=== PATIENT | female | born 1965 | race Caucasian/White ===

== ENCOUNTER 2023-06-23 12:43 | Outpatient (CLI) | payer OTHER, SELFPAY ==
--- NOTE | 2023-06-23 13:06 | ECG_ITS ---
Measurements Intervals [place] Rate: 71 P: -37 MN: 137 QRS: 15 QRSD: 80 T: 52 QT: 327 QTc: 355 Interpretive Statements SINUS RHYTHM BORDERLINE ST-T WAVE ABNORMALITY- HIGH LATERAL LEADS BASELINE ARTIFACT- I, II, III, AVR, AVL, AVF BORDERLINE ECG NO PREVIOUS ECG AVAILABLE FOR COMPARISON Electronically Signed On 06-23-2023 13:48:56 CDT by Rian Benito D.O.
== END 2023-06-23 12:44 | disposition home or self-care (01) ==
LOC: ANHSURGERY 13:04
PROVIDERS: PCP Internal Medicine; Visit Provider Podiatrist Foot & Ankle Surgery
DX: Z01.818 Encounter for other preprocedural examination (principal); E78.00 Pure hypercholesterolemia, unspecified
CPT/HCPCS: 93005

== ENCOUNTER 2023-06-27 00:25 | Day surgery (SDC) | payer OTHER, SELFPAY ==
--- NOTE | 2023-06-23 10:22 | SUR.PREOP ---
Report to the Outpatient Waiting Room, entrance under the green pavilion located off [facility], at time 1130 on date 06/27/23. Planned Procedure Time: 1330. Time changes happen often and if your time is changed the preop area will call you the afternoon before. - You and your visitor will be asked to self-screen and do not enter if you have any COVID symptoms. - A mask is optional within the hospital at this time. Patients may have clear liquids (water, carbonated beverages, clear teas, apple juice) until 3 hours prior to surgery with a maximum of 20 ounces. - NO CLEAR LIQUIDS AFTER 1030 - No food from midnight until time of surgery - Infants may have breast milk until 4 hours before surgery, formula 6 hours prior to surgery. - Children will be allowed to drink immediately following surgery. If applicable, please bring a bottle or sippy cup to assist with drinking. Juice, water, soda, and popsicles are readily available. For infants on formula, please bring formula the day of surgery. Pacifiers are allowed. Take the following medications with a SIP of water the morning of surgery: VENLAFAXINE DO NOT STOP ANY OF YOUR OTHER PRESCRIPTION MEDICATIONS PRIOR TO SURGERY ?EXCEPT THE FOLLOWING Medications to discontinue per physician Date to take last dose Please no make-up, nail georgian, hairspray, perfume, deodorant, or body powder the day of surgery. No jewelry (including any body piercings) or valuables the day of surgery, leave them at home. Please take a shower or bath the night before, or the morning of, surgery with an antibacterial soap. Wear comfortable, loose fitting clothing. Children are encouraged to wear pajamas. - Jewelry must be removed prior to entering the operating room. Rings and piercings that are not removed may be cut off. - The hospital will not accept responsibility for valuables. - Please leave all valuables, including medications, at home the day of surgery. If you are going home after surgery, a licensed [employer] company driver must drive you home. - NO public transportation without another adult if you receive anesthesia. - We recommend that an adult stay with you for 24 hours following discharge. - We also recommend that you do not drive, make important decision, drink alcoholic beverages, or take any drugs that were not prescribed by your health care provider for at least 24 hours after your discharge time. For Pediatric surgeries, we recommend two adults accompany the child home. Follow any additional instructions given to you from your surgeon. If you or anyone in your household have experienced Covid symptoms in the past week, please notify your surgeon or the nurse liaison at the phone number below for possible testing. Telephone instructions given to [place] and asked if any additional questions and then verbalized understanding. Patient advised to call surgeon office or pre surgery nurse liaison [phone] if any additional questions.
[2023-06-23 10:55] VITALS: BMI 28.3
[2023-06-27] VITALS (8 sets, daily range): BP systolic 139–168; BP diastolic 64–89; PULSE 70–89; RESP 12–20; TEMP 36.3–36.6; O2SAT 96–100
--- NOTE | ~2023-06-27 | XR_ITS ---
EXAMINATION: XR surgery orthopedic INDICATION: Left foot arthrodesis TECHNIQUE: Two fluoroscopic images of the distal left foot are submitted for review. Total fluoroscop ic time was six seconds. COMPARISON: None available FINDINGS: Fluoroscopic images demonstrate plate and screw fusion of the first metatarsophalangeal yury nt. Orthopedic hardware traverses the phalanges of the second toe and into the second metatarsal. Ple ase refer to procedure note for full details. IMPRESSION: 1. Please refer to procedure note for full details. Reviewed, dictated and finalized at location F.
--- NOTE | 2023-06-27 07:14 | WPDHPUPDATE1 ---
History and Physical Update Update Date/Time: 06/27/23 07:14 History and Physical has been reviewed, including an updated exam of the patient. There are NO changes in the patient's condition. Risks, benefits, and alternatives have been discussed and questions answered. Patient agrees to proceed with procedure.
--- NOTE | 2023-06-27 09:45 | P.PNAN_ITS ---
Anes - Initial Pre Proc Eval Procedure: Operation Date: 06/27/23 13:30 Proposed Procedures p Arthrodesis First Metatarsal Phalangeal Joint Left Foot, Марина Shortening Second Metatarsal Osteotomy Left Foot - Qamar Salcido JR, MD s Second Digit Hammertoe Repair Left Foot - Qamar Salcido JR, MD s Possible Second Metatarsal Head Resection - Qamar Salcido JR, MD Date/Time: 06/27/23 09:45 Surgeon: Qamar Salcido JR, MD Pre Op Diagnosis: Bunion Lt, Metatarsalgia Lt,Hammertoe Lt 2nd Digit Patient Data Age: 57 Gender: F Height: 1.63 m Weight: 75 kg Allergies Allergy/AdvReac Type Severity Reaction Status Date / Time Sulfa (Sulfonamide Allergy Intermediate rash Verified 06/27/23 11:28 Antibiotics) Home Medications Medication Instructions Recorded Confirmed Type trazodone 100 mg tablet 100 mg PO QHS 12/10/21 06/27/23 History venlafaxine 100 mg tablet 100 mg PO BID 12/10/21 06/27/23 History atorvastatin 10 mg tablet 10 mg PO DAILY 02/10/23 06/27/23 History Patient hx anesthesia problems: post op nausea/vomiting Family hx anesthesia problems: none Results Review: All pre-operative results and documents have been reviewed as part of the pre-operative evaluation. [facility], LAT[facility] Past Medical History Medical History (Updated 02/10/23 @ 15:06 by REINALDO Geiger) Anxiety and depression CTS (carpal tunnel syndrome) (06/15/20) right hand High cholesterol rx meds Screening mammogram, encounter for Surgical History Surgical History H/O LEEP (10/13/99) leep- cx dysplasia History of hernia surgery (~1988) History of hysteroscopy (~1988) Family History Family History Father Heart disease Sibling Heart disease brother Lung cancer brother Alcohol abuse brother Mother Hypertension Thyroid cancer Social History Social History Smoking status: Never smoker Alcohol intake: current Drinks per week: 8 Substance use: never Substance use type: does not use Living arrangements: with family Additional living arrangements comments: spouse Occupation/Education: occupation 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 Gender identity (if verbalized by the patient): Female Sexual Orientation (if Verbalized by the Patient): Straight or Heterosexual Spiritual care concerns: No Anes - Eval Final PreProcedure Day of Procedure 06/27/23 09:45 Patient weight: overweight Heart: regular rate and rhythm Lungs: clear to auscultation Airway: Mallampati scale class II Neurological: alert and oriented Last oral intake: >/= 8 hours ASA classification: II Emergent: no Anesthetic plan: proceed Anesthesia type and monitoring: general GIVS and standard monitoring Results Review: All pre-operative results and documents have been reviewed as part of the pre- operative evaluation. Informed Consent: The patient's anesthetic plan and its attendant risks and benefits were discuss ed with the patient/family/POA. Questions were solicited and answers provided to the satisfaction of the patient/family/POA.
--- NOTE | 2023-06-27 11:04 | WPDANESPNB ---
Anes - Peripheral Nerve Block Date/Time: 06/27/23 11:04 I have discussed with the patient/family/POA the placement of a peripheral nerve block for post-operative pain management, including associated risks, benefits, complications, and side effects. Alternative methods of post-operative analgesia were detailed. Questions were solicited and answers provided to the satisfaction of the patient/family/POA. Time-Out: A pre-procedural Time-Out was completed immediately before starting the procedure and confirmed: Patient Identification, Site, Procedure, Patient Position and the Availability of Requisite Equipment. Clinical Indications: Acute post-operative pain management requested by the operative surgeon. Nerve Block Insertion Note Anes-nerve block: posterior fossa sciatic left and adductor canal left Patient position: supine (for adductor canal) and other (right lateral for popliteal) Skin prep: chlorhexidine Needle: 22 gauge, stimulating, insulated echogenic needle. Needle length: 80 mm Technique: nerve stimulation lost at (mA) (for popliteal lost at 0.2) and ultrasound Injectate: bupivacaine 0.5% with epi 5 mcg/ml (20 mL for popliteal, 10 mL for adductor canal (no epi)) Observations: tolerated well Complications: none Procedure start time:: 1240 Procedure end time:: 124
[2023-06-27] MEDS: LACTATED RINGERS 1,000 ML 30 ML IV CONT ×2 (11:40→14:22)
[2023-06-27] MEDS: SCOPOLAMINE 1.5 MG PATCH TRANSDERM (12:14)
[2023-06-27] MEDS: ceFAZolin 2 GM/D5W 50 ML 2 GM/50 ML BAG IVPB (12:59)
--- NOTE | 2023-06-27 14:27 | WPDHPUPDATE1 ---
History and Physical Update Update Date/Time: 06/27/23 14:27 History and Physical has been reviewed, including an updated exam of the patient. There are NO changes in the patient's condition. Risks, benefits, and alternatives have been discussed and questions answered. Patient agrees to proceed with procedure.
--- NOTE | 2023-06-27 14:27 | W.PM.PROC2 ---
Procedure Note - Detailed Date of Procedure 06/27/23 Pre-op Diagnosis 1. Severe arthritic bunion left foot 2. Dislocated 2nd digit left foot at the metatarsal phalangeal joint 3. 3rd digit hammertoe deformity left foot Post-op Diagnosis Same Procedure Performed 1. Arthrodesis of the first metatarsal phalangeal joint left foot 2. 2nd metatarsal head resection left foot 3. Hammertoe repair second digit left foot with proximal interphalangeal joint arthrodesis Surgeon Qamar Salcido JR, KANDI Anesthesia General and Regional Indications Painful left forefoot Findings Significant joint deneration to the first and second metatarsal phalangeal joint the second digit was on top of the second metatarsal head Description of Procedure PROCEDURE IN DETAIL:? Under mild sedation, the patient was brought into the operating room, placed on the operating table in supine position.? A pneumatic ankle tourniquet was placed about the patient's ipsilateral ankle.? Following general anesthesia and a popliteal fossa block, the foot was? scrubbed, prepped, and draped in the usual aseptic manner.? An Esmarch bandage was then used to exsanguinate the patient's? foot and the pneumatic ankle tourniquet was then inflated. ? Surgery began in the following manner:? Attention was directed to the dorsal medial aspect of the 1st metatarsophalangeal joint where there was a ?hallux valgus deformity noted with a prominent first metatarsal phalangeal joint dorsal medially.? The incision was made starting along the central shaft of the 1st metatarsal and extending just proximal to the interphalangeal joint of the? hallux.? The incision was continued deep down through the subcutaneous tissues using sharp and blunt dissection.? All bleeders were cauterized as necessary.? At this point, the dissection was continued down to the level of the periosteum and capsular structures overlying the 1st metatarsophalangeal joint.? A full length periosteum and capsular incision was made just medial to the extensor hallucis longus tendon.? The periosteum and capsular structures were freed from the base of the proximal phalanx as well as the distal 1st metatarsal.? At this point, the 1st metatarsophalangeal joint was identified.? There was loss of articular cartilage to the head of the 1st metatarsal, mostly medially as well as the base of the proximal phalanx worse medially.? There was mild broadening and hypertrophy of the 1st metatarsophalangeal joint.? Utilizing a sagittal bone saw, the hypertrophied 1st metatarsal was resected dorsally, medially, and laterally.? A power bur was used to make sure that there were no rough edges and also to further debride the hypertrophic 1st metatarsal.? Next, a rongeur was used to resect the hypertrophic base of the proximal phalanx.? At this point, the reamer system for the [employer] system was used to denude the degenerative cartilage from the head of the 1st metatarsal as well as the base of the proximal phalanx.? The cartilage and subchondral bone were fully debrided utilizing the reamer system until healthy bleeding bone was noted. I flushed the surgery site with copious amounts of sterile saline.? Next, a 2-0 drill bit was used to further fenestrate the head of the 1st metatarsal as well as the base of the proximal phalanx in order to promote fusion across the 1st metatarsophalangeal joint.? Next, a 0.045 inch K-wire was driven from the medial aspect of the base of the proximal phalanx into the head of the 1st metatarsal in order to serve as temporary fixation.? A large steel plate was used to make sure that the hallux was in a rectus position both in the sagittal plane as well as the frontal and transverse plane.? Excellent position of the hallux was noted.? Next, a CrossCHECK plate was placed atop the 1st metatarsophalangeal joint held in position with Goodwin wires.? Utilizing standard principles and techniques, the 2 distal drill holes were drilled and
--- NOTE | 2023-06-27 14:50 | SUR.PHASEI ---
1449: Simple mask removed.
== END 2023-06-27 16:20 | disposition home or self-care (01) ==
PROVIDERS: PCP Internal Medicine; Visit Provider Podiatrist Foot & Ankle Surgery
PROC: (CPT 28750; principal; 2023-06-27 13:30)
PROC: (CPT 28285; 2023-06-27 13:30)
PROC: (CPT 28104; 2023-06-27 13:30)
DX: M21.612 Bunion of left foot (principal); M19.072 Primary osteoarthritis, left ankle and foot; M20.42 Other hammer toe(s) (acquired), left foot; S93.125A Dislocation of metatarsophalangeal joint of left lesser toe(s), initial encounter; X58.XXXA Exposure to other specified factors, initial encounter; G89.18 Other acute postprocedural pain; F41.8 Other specified anxiety disorders; E78.00 Pure hypercholesterolemia, unspecified
CPT/HCPCS: 28285; 28112; 28750; 64447; 64445; 99199; A9270; C1713; J0690; J1100; J2250; J2405; J2704; J3010; J7120